=== PATIENT | female | born 1990 | race African-American/Black ===

== ENCOUNTER 2016-06-11 06:33 | Emergency (ER) | payer MEDICAID ==
[2016-06-11 08:18] LABS: CALC OSMOLALITY 278 mosm/kg (275-300); CARBON DIOXIDE 25.3 mmol/L (21.0-32.0); CHLORIDE - SERUM 104 mmol/L (98-107); CREATININE - SERUM 0.9 mg/dL (0.6-1.3); GLUCOSE 92 mg/dL (74-106); POTASSIUM - SERUM 4.5 mmol/L (3.5-5.1); SODIUM 139 mmol/L (136-145); UREA NITROGEN 16 mg/dL (7-18); eGFR NON AFRICAN AMERICAN 81 mL/min (90-120)
[2016-06-11 08:26] LABS: HEMATOCRIT 39.4 % (36.0-48.0); LYMPHOCYTES 9.4 % (15-50); MCH 28.1 pg (26.0-34.0); MCV 85.3 fL (80.0-100.0); MEAN PLATELET VOLUME 9.2 fL (7.4-10.4); NEUTROPHILS 85.6 % (40-80); PLATELET COUNT 249 10x3/uL (130-400); RBC 4.62 10x6/uL (4.00-5.40); RDW 13.3 % (11.5-14.5); WBC 19.8 10x3/uL (4.8-10.8)
[2016-06-11 08:29] LABS: HCG SERUM NEGATIVE (NEGATIVE)
== END 2016-06-11 12:39 | disposition home or self-care (01) ==
LOC: D.ER 06:33
PROVIDERS: Emergency Medicine
DX: G40.909 Epilepsy, unspecified, not intractable, without status epilepticus (principal)

== ENCOUNTER 2016-06-18 20:12 | Emergency (ER) | payer MEDICAID ==
[2016-06-18 21:33] LABS: HCG URINE NEGATIVE (NEGATIVE)
== END 2016-06-18 22:45 | disposition home or self-care (01) ==
LOC: D.ER 20:12
PROVIDERS: Emergency Medicine
DX: J06.9 Acute upper respiratory infection, unspecified (principal); J45.909 Unspecified asthma, uncomplicated; G40.909 Epilepsy, unspecified, not intractable, without status epilepticus

== ENCOUNTER 2016-09-03 18:58 | Emergency (ER) | payer MEDICAID | END 2016-09-03 23:00 | disposition home or self-care (01) | LOC: D.ER 18:58 | DX: J06.9 Acute upper respiratory infection, unspecified (principal); J32.9 Chronic sinusitis, unspecified; J02.9 Acute pharyngitis, unspecified; J45.909 Unspecified asthma, uncomplicated; G40.909 Epilepsy, unspecified, not intractable, without status epilepticus ==

== ENCOUNTER 2016-11-23 20:29 | Emergency (ER) | payer MEDICAID | END 2016-11-23 23:14 | disposition home or self-care (01) | LOC: D.ER 20:29 | DX: K52.9 Noninfective gastroenteritis and colitis, unspecified (principal); K92.1 Melena; R51 Headache ==

== ENCOUNTER 2017-09-16 17:22 | Emergency (ER) | payer SELFPAY | END 2017-09-16 19:46 | disposition home or self-care (01) | LOC: D.ER 17:22 | DX: S43.402A Unspecified sprain of left shoulder joint, initial encounter (principal); X58.XXXA Exposure to other specified factors, initial encounter; Y93.89 Activity, other specified; Y92.89 Other specified places as the place of occurrence of the external cause ==

== ENCOUNTER → 2017-10-13 14:54 | Outpatient (CLI) | payer MEDICAID ==
[~2017-10-13 14:54] MED LIST: HYDROCODON-ACE1 EAC7; KEPPRA750 MG PO; KLONOPIN1 MG; LAMICTAL150 MG PO; PEPCID AC20 MG PO; ROBAXIN-750750 MG; ZOFRAN4 MG PO
== END | disposition home or self-care (01) ==
LOC: D.MRI 14:54
DX: M25.512 Pain in left shoulder (principal)

== ENCOUNTER 2017-12-10 19:42 | Emergency (ER) | payer OTHER ==
[~2017-12-10] VITALS: Ht 167.6 cm; Wt 94.8 kg
[2017-12-10 20:15] VITALS: Ht 167.6 cm; Wt 94.8 kg
[2017-12-10] MEDS ORDERED: KEPPRA750 MG PO (20:18)
[2017-12-10] MEDS ORDERED: PEPCID AC20 MG PO (20:18)
[2017-12-10] MEDS ORDERED: HYDROCODON-ACE1 EAC7 (20:18)
[2017-12-10] MEDS ORDERED: KLONOPIN1 MG (20:18)
[2017-12-10] MEDS ORDERED: LAMICTAL150 MG PO (20:18)
[2017-12-10] MEDS ORDERED: ROBAXIN-750750 MG (20:19)
[2017-12-10 20:42] LABS: APPEARANCE CLEAR (CLEAR); BILIRUBIN NEGATIVE (NEGATIVE); COLOR YELLOW (YELLOW); GLUCOSE NEGATIVE (NEGATIVE); KETONE NEGATIVE (NEGATIVE); NITRITE NEGATIVE (NEGATIVE); PROTEIN NEGATIVE (NEGATIVE); SPECIFIC GRAVITY 1.025 (1.005-1.020); UROBILINOGEN NORMAL (NORMAL)
[2017-12-10 20:44] LABS: RED CELLS - URINE 0-5 /hpf (0-5); WHITE CELLS - URINE 0-5 /hpf (0-5)
[2017-12-10 20:46] LABS: BACTERIA FEW /hpf (NONE SEEN)
[2017-12-10 20:48] LABS: BASOPHILS 0.2 % (0-2); EOSINOPHILS 0.7 % (0-7); HEMATOCRIT 39.1 % (36.0-48.0); IMMATURE GRANULOCYTES 0.2 % (0-5); MCH 28.6 pg (26.0-34.0); MCHC 33.2 g/dL (31.0-37.0); MCV 85.9 fL (80.0-100.0); MEAN PLATELET VOLUME 9.7 fL (7.4-10.4); MONOCYTES 6.9 % (2-11); PLATELET COUNT 271 10x3/uL (130-400); RBC 4.55 10x6/uL (4.00-5.40); RDW 12.5 % (11.5-14.5); WBC 6.1 10x3/uL (4.8-10.8)
[2017-12-10 21:10] LABS: ALBUMIN 4.2 g/dL (3.4-5.0); ALKALINE PHOSPHATASE 39 U/L (46-116); ALT (SGPT) 16 U/L (10-68); BILIRUBIN - TOTAL 0.24 mg/dL (0.2-1.3); CALC OSMOLALITY 274 mosm/kg (275-300); CALCIUM 9.4 mg/dL (8.5-10.1); CARBON DIOXIDE 26.1 mmol/L (21.0-32.0); CHLORIDE - SERUM 103 mmol/L (98-107); CREATININE - SERUM 0.9 mg/dL (0.6-1.3); GLUCOSE 84 mg/dL (74-106); POTASSIUM - SERUM 3.8 mmol/L (3.5-5.1); PROTEIN - SERUM 7.9 g/dL (6.4-8.2); SODIUM 138 mmol/L (136-145); UREA NITROGEN 12 mg/dL (7-18); eGFR NON AFRICAN AMERICAN 81 mL/min (90-120)
[2017-12-10 21:16] LABS: HCG - QUANTITATIVE (MATERNAL) 0 mIU/mL; LIPASE 95 U/L (73-393)
[2017-12-10] MEDS ORDERED: ZOFRAN4 MG PO (22:07)
[2017-12-10 23:59] VITALS: BP 118/80
[2018-01-14] MEDS ORDERED: IMITREX100 MG PO (08:14)
[2018-01-17 06:20] VITALS: Ht 167.6 cm; Wt 94.8 kg
== END 2017-12-11 | disposition home or self-care (01) ==
LOC: D.ER 19:42
PROVIDERS: Emergency Medicine
DX: R11.10 Vomiting, unspecified (principal)

== ENCOUNTER 2018-01-17 05:30 | Day surgery (SDC) | payer OTHER ==
[2018-01-14 08:42] LABS: HEMATOCRIT 38.9 % (36.0-48.0); MCH 28.6 pg (26.0-34.0); MCHC 33.4 g/dL (31.0-37.0); MCV 85.7 fL (80.0-100.0); MEAN PLATELET VOLUME 9.5 fL (7.4-10.4); RBC 4.54 10x6/uL (4.00-5.40); RDW 12.3 % (11.5-14.5); WBC 5.8 10x3/uL (4.8-10.8)
[~2018-01-17] VITALS: Ht 175.3 cm; Wt 90.7 kg
--- NOTE | ~2018-01-17 | OP ---
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 PROCEDURE: Arthroscopic Bankart repair of the right shoulder. SURGEON: Lilo Torres MD ANESTHESIA: General. INTRAOPERATIVE COMPLICATIONS: None. SUMMARY OF PATHOLOGIC FINDINGS: The patient had essentially an ALPSA lesion anterior periosteal sleeve avulsion injury of the anterior inferior aspect of the glenoid. The patient also had Hill-Sachs as noted on the MRI. Remplissage was not performed. OPERATIVE SUMMARY IN DETAIL: After obtaining the appropriate preoperative orthopedic surgery consent as well as anesthetic consultation, evaluation and clearance, the patient was brought to the operating room and placed on table in supine position. After adequate general laryngeal mask was administered, the patient was placed in a left lateral decubitus position. All pressure points were well-padded to include down leg peroneal pad as well as axillary roll. The patient was held firmly to the operating table using the vacuum pack suction system. Right upper extremity and shoulder were then prepped and draped in routine sterile fashion. The arm was held in the Arthrex traction boom at 30 degrees of forward flexion, 30 degrees of abduction, 10 pounds of traction laterally. Arthroscopy was established in the glenohumeral joint from the posterior portal. Anterior partial was established through anterior safe interval. Diagnostic arthroscopy did reveal the above findings. Accessory tertiary portal was created. The anterior aspect of the glenoid rim was then debrided using a resector as well as the paralabral and periosteal elevator. The entire anterior periosteal sleeve was well mobilized and at this point anchoring was begun. The percutaneous PushLock system was deployed. The first anchor was then placed very low at approximately the 4:30 position. This was precursored with a labral tape that was placed through the capsule underneath the labrum for a very good solid bite. Labral tape was then passed into the accessory cannula of the percutaneous kit and the first PushLock was deployed at the 4:30 position. Having completed this, the next anchor was then placed at approximately the 3:30 position using a very similar method with the same percutaneous cannula this. This got excellent fixation of both the capsule and the labrum at the 4:30 and 3:30 position. Final anchor was then placed at the 2 o'clock position with again a good reapproximation of both the capsule as well as the labrum back to the anterior aspect of the glenoid. Having completed this, final postoperative x-rays were taken. The patient's arthroscopic portals were closed in routine interrupted fashion using 4-0 Prolene. Sterile dressings were applied. The patient was awakened and taken to recovery room in stable condition. All final needle and sponge counts were correct. OPERATIVE REPORT [id number] AURELIANO ALARCON TRANSINT:[id number] Voice Confirmation ID: [id number] DOCUMENT ID: [id number] BRIAN RENEE, LILO BRIGHT at 1023 CC: [id number] DICTATION DATE: 01/20/18 0808 PROFESSIONAL SHOPPER: 01/20/[id number] [facility] [place], [place] 01/17/18 [id number] [place] [address]
[~2018-01-17 05:30] MED LIST changes: +IMITREX100 MG PO
[2018-01-17] MEDS ORDERED: ACETAMINOPHEN-C1 TAB PO (05:58)
[2018-01-17 06:20] VITALS: BP 114/66; Ht 175.3 cm; Wt 90.7 kg
[2018-01-17 06:28] LABS: HCG URINE NEGATIVE (NEGATIVE)
[2018-01-17] MEDS ORDERED: HYDROCODONE-APA1 TAB PO (09:00)
== END 2018-01-17 12:27 | disposition home or self-care (01) ==
LOC: D.OPS 05:30 → D.PAN 10:30 → D.OPS 12:15 → D.PAN 12:15 → D.OPS 12:27 → D.PAN 14:00
PROVIDERS: Anesthesiology; Orthopaedic Surgery
DX: M24.411 Recurrent dislocation, right shoulder (principal); S43.011A Anterior subluxation of right humerus, initial encounter; M25.311 Other instability, right shoulder; Z01.812 Encounter for preprocedural laboratory examination

== ENCOUNTER 2018-02-28 10:10 | Emergency (ER) | payer OTHER ==
[~2018-02-28] VITALS: Ht 175.3 cm; Wt 93.4 kg
[~2018-02-28 10:10] MED LIST changes: +ACETAMINOPHEN-C1 TAB PO; +HYDROCODONE-APA1 TAB PO
[2018-02-28 10:33] VITALS: Ht 175.3 cm; Wt 93.4 kg
[2018-02-28 11:05] LABS: BASOPHILS 0.2 % (0-2); EOSINOPHILS 0.4 % (0-7); HEMATOCRIT 40.4 % (36.0-48.0); HEMOGLOBIN 13.4 g/dL (12-16); IMMATURE GRANULOCYTES 0.4 % (0-5); LYMPHOCYTES 34.9 % (15-50); MCH 28.9 pg (26.0-34.0); MCHC 33.2 g/dL (31.0-37.0); MCV 87.3 fL (80.0-100.0); MEAN PLATELET VOLUME 9.7 fL (7.4-10.4); MONOCYTES 6.3 % (2-11); NEUTROPHILS 57.8 % (40-80); PLATELET COUNT 277 10x3/uL (130-400); RBC 4.63 10x6/uL (4.00-5.40); RDW 12.8 % (11.5-14.5); WBC 5.7 10x3/uL (4.8-10.8)
[2018-02-28 11:13] LABS: APPEARANCE CLEAR (CLEAR); BILIRUBIN NEGATIVE (NEGATIVE); COLOR YELLOW (YELLOW); GLUCOSE NEGATIVE (NEGATIVE); KETONE NEGATIVE (NEGATIVE); NITRITE NEGATIVE (NEGATIVE); PROTEIN NEGATIVE (NEGATIVE); UROBILINOGEN NORMAL (NORMAL)
[2018-02-28 11:15] LABS: HCG SERUM NEGATIVE (NEGATIVE)
[2018-02-28 11:21] LABS: ALBUMIN 4.4 g/dL (3.4-5.0); ALKALINE PHOSPHATASE 35 U/L (46-116); ALT (SGPT) 21 U/L (10-68); BILIRUBIN - TOTAL 0.39 mg/dL (0.2-1.3); CALC OSMOLALITY 279 mosm/kg (275-300); CALCIUM 9.1 mg/dL (8.5-10.1); CARBON DIOXIDE 27.4 mmol/L (21.0-32.0); CHLORIDE - SERUM 103 mmol/L (98-107); CREATININE - SERUM 0.9 mg/dL (0.6-1.3); GLUCOSE 86 mg/dL (74-106); POTASSIUM - SERUM 3.7 mmol/L (3.5-5.1); PROTEIN - SERUM 8.6 g/dL (6.4-8.2); SODIUM 140 mmol/L (136-145); UREA NITROGEN 19 mg/dL (7-18); eGFR NON AFRICAN AMERICAN 81 mL/min (90-120)
[2018-02-28 13:23] VITALS: BP 118/72
== END 2018-02-28 13:06 | disposition home or self-care (01) ==
LOC: D.ER 10:10
PROVIDERS: Family Medicine
DX: N93.9 Abnormal uterine and vaginal bleeding, unspecified (principal); B96.81 Helicobacter pylori [H. pylori] as the cause of diseases classified elsewhere; R10.30 Lower abdominal pain, unspecified; G40.909 Epilepsy, unspecified, not intractable, without status epilepticus

== ENCOUNTER 2018-03-10 15:01 | Emergency (ER) | payer OTHER ==
[~2018-03-10] VITALS: Ht 175.3 cm; Wt 93.2 kg
[2018-03-10 15:02] VITALS: Ht 175.3 cm; Wt 93.2 kg
[2018-03-10 16:13] LABS: HCG SERUM NEGATIVE (NEGATIVE)
[2018-03-10] MEDS ORDERED: TORADOL10 MG PO (17:20)
[2018-03-10 18:19] VITALS: BP 100/56
== END 2018-03-10 18:03 | disposition home or self-care (01) ==
LOC: D.ER 15:01
PROVIDERS: Family Medicine
DX: R51 Headache (principal); M25.562 Pain in left knee; M54.2 Cervicalgia; R07.81 Pleurodynia; S99.911A Unspecified injury of right ankle, initial encounter; V43.52XA Car driver injured in collision with other type car in traffic accident, initial encounter; Y93.89 Activity, other specified; Y92.410 Unspecified street and highway as the place of occurrence of the external cause; M25.511 Pain in right shoulder; G40.909 Epilepsy, unspecified, not intractable, without status epilepticus; K21.9 Gastro-esophageal reflux disease without esophagitis

== ENCOUNTER 2018-04-09 20:27 | Emergency (ER) | payer OTHER ==
[2018-03-10 15:02] VITALS: Ht 175.3 cm; Wt 81.8 kg
[~2018-04-09] VITALS: Ht 175.3 cm; Wt 81.8 kg
[~2018-04-09 20:27] MED LIST changes: +TORADOL10 MG PO
[2018-04-09 21:26] LABS: BASOPHILS 0.3 % (0-2); EOSINOPHILS 0.6 % (0-7); HEMATOCRIT 38.1 % (36.0-48.0); HEMOGLOBIN 12.4 g/dL (12-16); IMMATURE GRANULOCYTES 0.8 % (0-5); LYMPHOCYTES 21.3 % (15-50); MCH 28.4 pg (26.0-34.0); MCHC 32.5 g/dL (31.0-37.0); MCV 87.4 fL (80.0-100.0); MEAN PLATELET VOLUME 10.2 fL (7.4-10.4); MONOCYTES 9.3 % (2-11); NEUTROPHILS 67.7 % (40-80); PLATELET COUNT 237 10x3/uL (130-400); RBC 4.36 10x6/uL (4.00-5.40); RDW 12.6 % (11.5-14.5); WBC 6.2 10x3/uL (4.8-10.8)
[2018-04-09 21:37] LABS: HCG SERUM NEGATIVE (NEGATIVE)
[2018-04-09 21:43] LABS: ALBUMIN 4.1 g/dL (3.4-5.0); ANION GAP 17.1 mmol/L (8-16); BILIRUBIN - TOTAL 0.19 mg/dL (0.2-1.3); CALCIUM 9.2 mg/dL (8.5-10.1); CARBON DIOXIDE 23.8 mmol/L (21.0-32.0); CREATININE - SERUM 1.1 mg/dL (0.6-1.3); POTASSIUM - SERUM 3.9 mmol/L (3.5-5.1); PROTEIN - SERUM 7.6 g/dL (6.4-8.2)
[2018-04-09 22:00] LABS: APPEARANCE CLEAR (CLEAR); BILIRUBIN NEGATIVE (NEGATIVE); COLOR YELLOW (YELLOW); GLUCOSE NEGATIVE (NEGATIVE); KETONE SMALL mg/dL (NEGATIVE); NITRITE NEGATIVE (NEGATIVE); PROTEIN TRACE mg/dL (NEGATIVE); UROBILINOGEN NORMAL (NORMAL)
[2018-04-09 22:02] LABS: BACTERIA FEW /hpf (NONE SEEN); RED CELLS - URINE 0-5 /hpf (0-5); WHITE CELLS - URINE 0-5 /hpf (0-5)
[2018-04-09 22:35] VITALS: BP 122/77
[2018-04-13 17:13] LABS: LAMOTRIGINE (LAMICTAL) 3.7 ug/mL (2.0-20.0)
[2018-04-13 19:12] LABS: LEVETIRACETAM 6.2 ug/mL (10.0-40.0)
== END 2018-04-09 22:36 | disposition home or self-care (01) ==
LOC: D.ER 20:27
PROVIDERS: Family Medicine
DX: G40.909 Epilepsy, unspecified, not intractable, without status epilepticus (principal)

== ENCOUNTER 2018-04-10 16:17 | Emergency (ER) | payer OTHER ==
[~2018-04-10] VITALS: Ht 175.3 cm; Wt 68.2 kg
[2018-04-10 16:27] VITALS: Ht 175.3 cm; Wt 68.2 kg
[2018-04-10 20:41] VITALS: BP 104/71
== END 2018-04-10 20:40 | disposition home or self-care (01) ==
LOC: D.ER 16:17
DX: G43.909 Migraine, unspecified, not intractable, without status migrainosus (principal); G40.909 Epilepsy, unspecified, not intractable, without status epilepticus

== ENCOUNTER 2018-06-22 17:43 | Emergency (ER) | payer OTHER ==
[~2018-06-22] VITALS: Ht 175.3 cm; Wt 90.9 kg
[2018-06-22 18:04] VITALS: Ht 175.3 cm; Wt 90.9 kg
[2018-06-22 18:37] LABS: APPEARANCE HAZY (CLEAR); BILIRUBIN NEGATIVE (NEGATIVE); COLOR YELLOW (YELLOW); GLUCOSE NEGATIVE (NEGATIVE); KETONE LARGE mg/dL (NEGATIVE); NITRITE NEGATIVE (NEGATIVE); PROTEIN NEGATIVE (NEGATIVE); SPECIFIC GRAVITY 1.015 (1.005-1.020); UROBILINOGEN NORMAL (NORMAL)
[2018-06-22 18:39] LABS: BACTERIA MANY /hpf (NONE SEEN); EPITHELIAL CELLS 0-5 /hpf (0-5); RED CELLS - URINE 0-5 /hpf (0-5); WHITE CELLS - URINE 25-50 /hpf (0-5)
[2018-06-22 18:41] LABS: HCG URINE NEGATIVE (NEGATIVE)
[2018-06-22 18:56] LABS: BASOPHILS 0.1 % (0-2); EOSINOPHILS 0.4 % (0-7); HEMOGLOBIN 12.5 g/dL (12-16); IMMATURE GRANULOCYTES 0.6 % (0-5); LYMPHOCYTES 14.2 % (15-50); MCH 28.5 pg (26.0-34.0); MCHC 32.9 g/dL (31.0-37.0); MCV 86.6 fL (80.0-100.0); MEAN PLATELET VOLUME 9.7 fL (7.4-10.4); MONOCYTES 10.2 % (2-11); NEUTROPHILS 74.5 % (40-80); PLATELET COUNT 251 10x3/uL (130-400); RBC 4.39 10x6/uL (4.00-5.40); RDW 12.3 % (11.5-14.5); WBC 6.7 10x3/uL (4.8-10.8)
[2018-06-22 19:12] LABS: ALBUMIN 4.2 g/dL (3.4-5.0); ALKALINE PHOSPHATASE 41 U/L (46-116); ALT (SGPT) 19 U/L (10-68); BILIRUBIN - TOTAL 0.39 mg/dL (0.2-1.3); CALC OSMOLALITY 272 mosm/kg (275-300); CALCIUM 8.9 mg/dL (8.5-10.1); CHLORIDE - SERUM 101 mmol/L (98-107); CREATININE - SERUM 0.9 mg/dL (0.6-1.3); GLUCOSE 75 mg/dL (74-106); POTASSIUM - SERUM 3.4 mmol/L (3.5-5.1); SODIUM 138 mmol/L (136-145); UREA NITROGEN 8 mg/dL (7-18); eGFR NON AFRICAN AMERICAN 80 mL/min (90-120)
[2018-06-22] MEDS ORDERED: ZOFRAN8 MG PO (21:18)
[2018-06-22] MEDS ORDERED: MACROBID100 MG PO (21:18)
[2018-06-22 22:37] VITALS: BP 124/77
[2018-06-26 15:08] LABS: CHLAMYDIA TRACHOMATIS, NAA Negative (Negative)
== END 2018-06-22 22:37 | disposition home or self-care (01) ==
LOC: D.ER 17:43
PROVIDERS: Family Medicine
DX: R30.0 Dysuria (principal); J06.9 Acute upper respiratory infection, unspecified; R05 Cough; M79.18 Myalgia, other site; R68.83 Chills (without fever)

== ENCOUNTER 2018-09-12 11:21 | Emergency (ER) | payer MEDICAID ==
[~2018-09-12 11:21] MED LIST changes: +MACROBID100 MG PO; +ZOFRAN8 MG PO
[2018-09-12 11:22] VITALS: BMI 29.2
[2018-09-12 12:52] VITALS: BP 118/70
== END 2018-09-12 12:55 | disposition home or self-care (01) ==
LOC: D.ER 11:21
DX: G40.909 Epilepsy, unspecified, not intractable, without status epilepticus (principal)

== ENCOUNTER → 2020-01-19 08:44 | Outpatient (CLI) | payer MEDICAID | END | disposition home or self-care (01) | LOC: D.US 08:44 | PROVIDERS: ATTEND Internal Medicine Gastroenterology | DX: R11.2 Nausea with vomiting, unspecified (principal) ==